=== PATIENT | male | born 1965 | race Caucasian/White ===

== ENCOUNTER 2016-08-26 00:03 | Inpatient (IN) | payer MEDICAID, OTHER ==
[2016-08-26] MEDS ORDERED: NICOTINE 21MG/24HR PATCH TRANSDERM STA (01:40)
[2016-08-26] MEDS ORDERED: LORazepam 1 MG TAB PO STA (01:40)
--- NOTE | 2016-08-26 03:07 | ED ---
Psych HPI - General Chief Complaint: Psychiatric Symptoms Stated Complaint: Mental Health Time Seen by Provider: 08/26/16 00:47 Source: patient, police Mode of arrival: ambulatory Limitations: altered mental status (Patient not forthcoming about recent history ) - History of Present Illness Initial Comments: This is a 50-year-old man brought for psychiatric evaluation, who comes in by the police. The patient is not forthcoming about the events of today area when I asked him why he was here, the patient states that I went out to walk my dog and then the police brought me here. Report received from police, which was given to me through the nursing staff, is that the patient's phoned the police tonight because she was concerned that the patient may attempt to harm himself. The patient's reportedly told him that she wanted to have a divorce, and the patient then reportedly said that he might as well just kill himself. It was reported to me that the patient does have access to guns. The patient does admit to drinking tonight. Again he was not forthcoming about his reason for being in tonight. MD Complaint: suicidal ideation -: hour(s) Context: recent alcohol abuse Associated Symptoms: denies other symptoms - Related Data Home Medications Medication Instructions Recorded Confirmed Aspirin 81 mg PO DAILY 08/26/16 08/26/16 Lisinopril [Zestril] 10 mg PO DAILY 08/26/16 08/26/16 Multivitamins, Thera [Multivitamin 1 tab PO DAILY 08/26/16 08/26/16 (formulary)] Potassium 99 mg PO DAILY 08/26/16 08/26/16 Unknown Otc Allergy Med 1 tab PO DAILY 08/26/16 08/26/16 Previous Rx's Medication Instructions Recorded Nicotine 21Mg/24Hr Patch [Habitrol] 1 patch TRANSDERM DAILY #14 patch 08/28/16 Venlafaxine HCl ER [Effexor XR] 225 mg PO DAILY #90 cap 08/28/16 cloNIDine HCL [Catapres] 0.1 mg PO BID #30 tab 08/28/16 Allergies Allergy/AdvReac Type Severity Reaction Status Date / Time bee venom protein (honey bee) Allergy Anaphylaxis Verified 08/26/16 08:12 Review of Systems ROS Statement: Those systems with pertinent positive or pertinent negative responses have been documented in the HPI. ROS Other: All systems not noted in ROS Statement are negative. Limitations: ROS unobtainable due to patients medical condition Past Medical History Past Medical History: COPD, Hyperlipidemia, Hypertension Additional Past Medical History / Comment(s): kidney stone History of Any Multi-Drug Resistant Organisms: None Reported Past Surgical History: Orthopedic Surgery, Tonsillectomy Additional Past Surgical History / Comment(s): back sx, right hand, right arm, Past Psychological History: Depression Smoking Status: Current every day smoker Past Alcohol Use History: Daily, Heavy Past Drug Use History: None Reported General Exam Limitations: no limitations General appearance: alert, in no apparent distress, appears intoxicated Head exam: Present: atraumatic, normocephalic Eye exam: Present: normal appearance, nystagmus Respiratory exam: Present: normal lung sounds bilaterally. Absent: respiratory distress, wheezes, rales, rhonchi, stridor Cardiovascular Exam: Present: regular rate, normal rhythm, normal heart sounds. Absent: systolic murmur, diastolic murmur, rubs, gallop GI/Abdominal exam: Present: soft. Absent: tenderness Neurological exam: Present: alert, oriented X3 Psychiatric exam: Present: other (Unable to assess) Skin exam: Present: warm, dry, intact, normal color. Absent: rash Course Vital Signs 08/26/16 08/26/16 08/26/16 00:20 07:02 10:50 Temperature 97.7 F Pulse Rate 99 70 95 Pulse Rate [ Left Standing] Pulse Rate [ Right Sitting Pulse Oximetery ] Pulse Rate [ Right] Respiratory 18 16 18 Rate Blood Pressure 139/84 130/85 160/94 Blood Pressure [Left Arm Standing] Blood Pressure [Right Arm Sitting] Blood Pressure [Right Arm] O2 Sat by Pulse 96 96 95 Oximetry 08/26/16 08/27/16 08/27/16 14:15 06:58 14:47 Temperature 98.4 F 97.8 F Pulse Rate Pulse Rate [ Left Standing] Pulse Rate [ 101 H 73 Right Sitting Pulse Oximetery ] Pulse Rate [ 110 H Right] Respiratory 15 16 18 Rate Blood Pressure Blood Pressure [Left Arm Standing] Blood Pressure 150/96 130/87 [Right Arm Sitting] Blood Pressure 109/79 [Right Arm] O2 Sat by Pulse 95 Oximetry 08/27/16 08/28/16 08/28/16 21:57 05:51 12:37 Temperature 98.1 F 97.5 F L Pulse Rate Pulse Rate [ 92 99 Left Standing] Pulse Rate [ Right Sitting Pulse Oximetery ] Pulse Rate [ 95 Right] Respiratory 17 16 Rate Blood Pressure Blood Pressure 137/84 127/84 [Left Arm Standing] Blood Pressure [Right Arm Sitting] Blood Pressure 139/88 [Right Arm] O2 Sat by Pulse Oximetry Medical Decision Making - Medical Decision Making Patient is a 50-year-old man who comes in to have psychiatric evaluation. The patient is not forthcoming about the reason for being here. When asked further questions about the events of tonight he states that he does not like my attitude and does not want to discuss any further. At this point will await for patient to be sober and see about reassessment at that point. - Lab Data Result diagrams: 08/27/16 08:38 08/27/16 08:38 Lab Results 08/26/16 Range/Units 00:35 Urine Opiates Screen Not Detected (NotDetected) Ur Oxycodone Screen Not Detected (NotDetected) Urine Methadone Screen Not Detected (NotDetected) Ur Propoxyphene Screen Not Detected (NotDetected) Ur Barbiturates Screen Not Detected (NotDetected) U Tricyclic Antidepress Not Detected (NotDetected) Ur Phencyclidine Scrn Not Detected (NotDetected) Ur Amphetamines Screen Not Detected (NotDetected) U Methamphetamines Scrn Not Detected (NotDetected) U Benzodiazepines Scrn Not Detected (NotDetected) Urine Cocaine Screen Not Detected (NotDetected) U Marijuana (THC) Screen Not Detected (NotDetected) Disposition Clinical Impression: Alcohol abuse with intoxication Disposition: HOME SELF-CARE
[2016-08-26] MEDS ORDERED: MAG HYDROX/AL HYDROX/SIMETH 30 ML CUP PO PRN (13:51)
[2016-08-26] MEDS ORDERED: ZIPRASIDONE 20 MG VIAL IM PRN (13:51)
[2016-08-26] MEDS ORDERED: MAGNESIUM HYDROXIDE 2,400 MG/10 ML CUP PO PRN (13:51)
[2016-08-26] MEDS ORDERED: ACETAMINOPHEN TAB 325 MG TAB PO PRN (13:51)
[2016-08-26] MEDS ORDERED: LORazepam 2 MG/ML SYRINGE IM PRN (14:12)
[2016-08-26] MEDS ORDERED: VENLAFAXINE HCL ER 150 MG CAP PO SCH (14:15)
[2016-08-26] MEDS ORDERED: cloNIDine HCL 0.1 MG TAB PO PRN (18:43)
[2016-08-26] MEDS: cloNIDine HCL 0.1 MG TAB PO SCH (21:04)
[2016-08-26] MEDS: LORazepam 1 MG TAB PO PRN (21:05)
[2016-08-27] MEDS: LISINOPRIL 10 MG TAB PO SCH (08:49)
[2016-08-27] MEDS: ASPIRIN 81 MG CHEW PO SCH (08:49)
[2016-08-27] MEDS: NICOTINE 21MG/24HR PATCH TRANSDERM SCH (08:52)
[2016-08-27] MEDS: LORazepam 1 MG TAB PO PRN (08:52)
[2016-08-27] MEDS: cloNIDine HCL 0.1 MG TAB PO SCH ×2 (08:52→21:57)
[2016-08-27 09:04] LABS: Basophils # (A) 0.1 k/uL (0-0.2); Basophils % (A) 1 %; CH 32.4; CHCM 32.7; Eosinophils # (A) 0.3 k/uL (0-0.7); Eosinophils % (A) 3 %; HCT 50.4 % (39.0-53.0); HDW 1.89; HGB 16.2 gm/dL (13.0-17.5); Luc # (Auto) 0.22; Luc % (Auto) 2; Lymphocytes # (A) 1.7 k/uL (1.0-4.8); Lymphocytes % (A) 17 %; MCH 31.9 pg (25.0-35.0); MCV 99.4 fL (80.0-100.0); Mean Platelet Volume 6.4; Monocytes # (A) 0.6 k/uL (0-1.0); Monocytes % (A) 6 %; Neutrophils # (A) 7.3 k/uL (1.3-7.7); Neutrophils % (A) 72 %; RBC 5.07 m/uL (4.30-5.90); RDW 12.9 % (11.5-15.5); WBC 10.2 k/uL (3.8-10.6); WBC (Perox) 10.29
[2016-08-27 09:45] LABS: ALT 44 U/L (21-72); AST 49 U/L (17-59); Alkaline Phosphatase 77 U/L (38-126); Anion Gap 7 mmol/L; Blood Urea Nitrogen 14 mg/dL (9-20); Calcium 9.9 mg/dL (8.4-10.2); Carbon Dioxide 30 mmol/L (22-30); Chloride 102 mmol/L (98-107); Glucose 122 mg/dL (74-99); Non-African American GFR(MDRD) >60 (>60 ml/min/1.73 sqM); Potassium 4.3 mmol/L (3.5-5.1); Sodium 139 mmol/L (137-145); Total Bilirubin 1.3 mg/dL (0.2-1.3); Total Protein 7.7 g/dL (6.3-8.2)
--- NOTE | 2016-08-27 09:57 | CONS ---
DATE OF CONSULTATION: DATE OF SERVICE: 08/26/2016 REASON FOR CONSULTATION: Advice regarding EtOH and multiple other medical issues requested by Psychiatry. HISTORY OF PRESENT ILLNESS: This 50-year-old gentleman with a past history of COPD, hypertension, hyperlipidemia, kidney stones, history of EtOH, history of nicotine dependence, being followed Dr. Landa in the outpatient was admitted of psychiatric evaluation. Patient apparently drinking heavily was last night. There is no history of any fever, rigors. No history of headache, loss of consciousness or seizures. No chest pain or palpitation at this time. PAST MEDICAL HISTORY: History of COPD, hypertension, hyperlipidemia, history of renal stones, history of tonsillectomy and depression. History of nicotine dependence and EtOH. Medications are: 1. Zestril 10 mg p.o. daily. 2. Allergy medication. 3. Aspirin 81 mg daily. 4. Effexor XR 150 mg p.o. daily. 5. Potassium 99 mg p.o. daily. 6. Multivitamins 1 p.o. daily. 7. Ativan 0.5 mg t.i.d. Allergies are BEE VENOM. FAMILY HISTORY: No history of heart disease or strokes in the family. SOCIAL HISTORY: Smoking and alcohol as mentioned. REVIEW OF SYSTEMS: ENT: No diminishing hearing or diminished vision. CARDIOVASCULAR: No angina. RESPIRATORY: As mentioned earlier. GI: No nausea. : No dysuria. NERVOUS SYSTEM: No numbness or weakness. ALLERGY/IMMUNOLOGY: No history of asthma, hayfever. MUSCULOSKELETAL: As mentioned earlier. HEMATOLOGY/ONCOLOGY: No history of anemia. ENDOCRINE: No history of diabetes mellitus or hypothyroidism. CONSTITUTIONAL: As mentioned earlier. DERMATOLOGY: Negative. RHEUMATOLOGY: Negative. PSYCHIATRY: As mentioned earlier. PHYSICAL EXAMINATION: The patient is alert and oriented x3. Pulse is 101, blood pressure 150/96, respirations 15, temperature 98.4, pulse ox 94% on room air. HEENT: Conjunctivae normal. Oral mucosa moist. NECK: No jugular venous distention. No carotid bruit. No lymph node enlargement. CARDIOVASCULAR: S1 and S2, muffled. No S3, no S4. RESPIRATORY: Breath sounds diminished at the bases. No rhonchi, no crackles. ABDOMEN: Soft, nontender. No mass palpable. No hepatosplenomegaly. LEGS: No edema, no swelling. NERVOUS SYSTEM: higher function as mentioned. Moves all 4 limbs. No focal deficits. LYMPHATICS: No lymphadenopathy of neck, axillae or groin. SKIN: No ulcers, rashes or bleeding. Labs are at this time, the urine drug screen is negative. Other labs . ASSESSMENT: 1. History of alcoholism and as well as possible alcoholic withdrawal. 2. Hypertension. 3. Chronic obstructive pulmonary disease. 4. Hyperlipidemia. 5. Nephrolithiasis. 6. Degenerative joint disease. 7. History of depression, not otherwise specified. 8. Continuing ongoing nicotine dependence. RECOMMENDATIONS AND DISCUSSION: This 50-year-old gentleman who presented with multiple complex medical issues, we will monitor the patient closely. Continue the current medications. Recommend to initiate the home medications of lisinopril, clonidine may also be initiated on a p.r.n. basis as well. Otherwise, will follow the patient closely with you. Supplement vitamins. Patient may be asked to follow with Dr. Landa. Recommend consultation as well as alcohol rehab. Prognosis guarded. Will follow the patient closely. The patient is currently stable. Thank you for letting us participate in the care of this patient. PHYLICIA
[2016-08-27] MEDS: MULTIVITAMINS, THERA 1 EACH TAB PO SCH (11:19)
--- NOTE | 2016-08-27 17:23 | HP ---
DATE OF ADMISSION: IDENTIFYING DATA: Patient is a 50-year-old male who has been living with his of more than 20 years. Patient presents to the mental health unit through the emergency room with suicidal ideation. HISTORY OF PRESENT ILLNESS: The patient stated that he was drinking "too much on Thursday and felt overwhelmed." Patient stated that he has been working 7 days a week and he has been feeling overwhelmed, as his 's physical health has been deteriorating due to multiple sclerosis. He stated that on Thursday he drank up to 24 beers and was very irritable; his did threaten to leave him, so he left home for a while. When he was gone, his went to the garage and found out that patient had pulled a shotgun from the case. Patient stated that he got very upset and he called his stepdaughter, Karen, and told her that he felt so overwhelmed that he was going to kill himself; and he was even talking about how he wanted to be buried. His stepdaughter called the police, who brought the patient to the emergency room. Today the patient stated that "when I am drinking I do say silly stuff." Patient minimized his statement to his . He did admit that he has anxiety and depression and "feeling so overwhelmed for the last couple of weeks" since he lost his dog, who , but at the same time he said, "I will never kill myself. I am just stressed out." He denied any appetite or sleeping problem. He reports that he does not enjoy anything in life and he is very bothered by his 's physical problem because "she has a mass and multiple lesions in her brain and she is not capable of doing anything." Patient denied any hypomanic or manic features, but he described having high anxiety and excessive worries about financial obligations; and this is characterized by restless feeling, irritability and feeling on edge. PAST PSYCHIATRIC HISTORY: There is one previous psychiatric hospitalization in our unit under Dr. Long in 2011. At that time the patient was intoxicated and he jumped into the tripathi. His diagnosis was major depression, recurrent, and anxiety disorder in addition to alcohol dependence. Currently patient has been getting his psychotropic medication from his primary care physician, Dr. Landa. According to the patient, he has been on Effexor 150 mg for the last 5 years and low dose of Ativan in the morning. When I did ask him if Dr. Landa is aware that he has a drinking problem, regarding the cross addiction between alcohol and benzodiazepine, he said, "Yes, she does not know, and she does not give me too much Ativan; just one in the morning before I go to work." SUBSTANCE ABUSE HISTORY: 1. Alcohol. He has been drinking since age 14. Currently he stated that he has been drinking only beer; however, it is on a daily basis, between 8 and 12 beers, but on Thursday he had 24 beers. He never has been in an inpatient substance abuse program, but he did attend AA meeting. 2. Nicotine. He has been smoking up to 2 packs a day for the last 25 years. 3. There is history of opium use disorder, but it has been in remission for the last 5 years. LEGAL PROBLEMS: Patient had 4 drunk-driving tickets. Last one was in 1991. Currently he denied any legal issue. FAMILY HISTORY OF PSYCHIATRIC ILLNESS: Father had drinking problems. MEDICAL HISTORY: 1. History of hypertension. 2. Status post back surgery 5 years ago. ALLERGIES: BEES. VITAL SIGNS AT THE TIME OF ADMISSION: Temperature 97.7, pulse 99, respiration 18, blood pressure 139/84. LABS: Urine drug screen was negative. SOCIAL HISTORY: Patient's parents were when he was 5 years of age. His mother remarried. Patient has 3 stepsisters. He stated that he is not close to his parents or to his stepsisters. He graduated from high school. Then he started working at age 17 or 18. At that time he did have his son from a brief relationship. He has been for more than 20 years. She is 7 years older than him. He stated that he raised her kids with his son. He has 3 stepdaughters and a son who is 32 years of age. Patient stated that he has been working full-time for the last 3 years at a [employer]. 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 MENTAL STATUS EXAMINATION: Patient presented as a male who looks his stated age. He is dressed in his own clothing. Hygiene is fair. Patient is very vague and not forthcoming. He minimized his drinking. He has good eye contact. Patient kept saying, "I am not happy to be here because I have a lot of bills to pay." Speech is not spontaneous. Thought process is linear, at times circumstantial. There is no evidence of looseness of association or flight of ideas. He endorses feeling overwhelmed, stressed out, depressed, but he denied any current suicidal or homicidal ideation or plan. Affect is constricted. There is no psychomotor agitation. He denied any psychotic feature. There is no hallucination, no delusion. He does not appear hypomanic or manic. His insight and judgment are limited. Cognitive function is intact, as he is alert, oriented to person, place and date, and he is able to recall 3 objects after a delay of several minutes. INTELLECTUAL FUNCTION: Average. STRENGTHS: Patient has his own job. WEAKNESSES: Extensive history of alcohol use. Financial issues. Deterioration of his 's physical health. IMPRESSION: 1. Major depression, recurrent, moderate, without psychotic feature. 2. Alcohol use disorder. 3. Anxiety disorder. 4. Psychosocial dysfunction due to symptoms of depression and alcohol use. PLAN: The patient was admitted to the mental health unit. Will continue the voluntary admission. I did review all his symptoms and medication options with him. As he stated that Effexor was helping, I will increase the Effexor from 150 mg to 225 mg daily. Will continue to monitor him for any alcohol withdrawal and will cover it according to the CIWA. Will request medical consultation. children's service worker to contact his to obtain collateral information from her. Encourage the patient to participate in therapeutic groups and activities groups. Will evaluate him on a daily basis.
[2016-08-28 05:52] VITALS: RESP 16; TEMP 97.5
[2016-08-28] MEDS ORDERED: VENLAFAXINE HCL ER 75 MG CAP PO SCH (09:00)
[2016-08-28] MEDS: LISINOPRIL 10 MG TAB PO SCH (09:51)
[2016-08-28] MEDS: NICOTINE 21MG/24HR PATCH TRANSDERM SCH (09:51)
[2016-08-28] MEDS: cloNIDine HCL 0.1 MG TAB PO SCH (09:51)
[2016-08-28] MEDS: ASPIRIN 81 MG CHEW PO SCH (09:51)
[2016-08-28] MEDS: LORazepam 1 MG TAB PO PRN (09:52)
[2016-08-28] MEDS ORDERED: LORazepam 0.5 MG TAB PO PRN (10:06)
--- NOTE | 2016-08-28 10:35 | P.PN ---
Progress Note - Text INTERVERAL HISTORY: Patient discussed in treatment meeting, reviewed chart, met with patient. Patient was laying in bed but followed me to office ,patient denies any current suicidal or homicidal ideation ,denies any alcohol withdrawals symptoms , patient has limited insight to his drinking , talked in detail about ongoing stressors for last two years :financial problems and relationship problem with his who has been addicted to Ativan and DX with MS "She wants to file for divorce to get more money on her SSD check , she does not do anything in house , just very argumentative ",patient denies any hopeless or helpless feeling, denies any sleeping or appetite problems ,denies any side-effect from higher dose of Effexor. Discussed with patient cross addiction as he has been on Ativan 0.[address] Amin for couple of years and he has been drinking on daily basis,he verbalized understanding PER NURSING STAFF: patient slept 6 hours ,CIWA: 0-1 Reviewed medical consultation :Catapress was added to Lisinopril Mental status exam: The patient is alert he is a disheveled appearance hygiene is fair. He dresses own clothing. He endorses depressed mood but denies any hopeless or helpless feeling ,denies suicidal ideation He is endorsing no current symptoms of psychosis he does not appear hypomanic or manic. He reports no homicidal ideation. His affect is bland. He has some limited spontaneous speech but mainly answers questions asked of him. Insight to his drinking is limited Plan: The patient's will continue on his current medication, we will continue to monitor his vital signs and provide Ativan as needed to prevent alcohol withdrawal. We will continue to monitor him for safety and encourage his participation in the milieu. He requires continued hospitalization. He is encouraged to attend inpatient chemical dependency treatment but he is resistant saying that he has to go to work ,agreed to attend AA, Sw will arrange meeting with for collateral information and to evaluate his support system
[2016-08-28] MEDS: MULTIVITAMINS, THERA 1 EACH TAB PO SCH (12:35)
[2016-08-28 12:38] VITALS: BP 127/84; PULSE 99
--- NOTE | 2016-08-29 15:39 | DS ---
DATE OF ADMISSION: 08/26/2016 DATE OF DISCHARGE: 08/28/2016 Consulting physician: Obdulio. Consulting provider: Dr. Ayala. Consult reason: Medical management. Do you want consulting provider notified: Yes. DISCHARGE DIAGNOSES: 1. Alcohol abuse with alcohol induced mood disorder alcohol use disorder. 2. Alcohol use disorder, severe. 3. Anxiety disorder, unspecified. BRIEF SUMMARY OF THE ADMISSION NOTES: The patient was admitted to the mental health unit from the emergency room on voluntary basis with depression, alcohol intoxication and suicidal ideation. For complete evaluation, please refer to my dictation on August 26. HOSPITAL COURSE: The patient was admitted to the mental health unit on voluntary basis. Once he was admitted to the mental health unit, he was started on alcohol detox. However, his CIWA was running between 0 to 1. He was seen by Dr. Ayala who did continue him on Lisinopril but he added Catapres 0.1 twice a day. Patient was seen on individual basis and also she was attending group therapy. From the first day of admission, he denied any suicidal ideation. He talked in detail about being overwhelmed with a lot of financial issues and his 's medical illness, but according to him, "I would never kill myself". Our executive secretary social welfare was able to contact patient's and also his daughter and daughter stated that she removed the gun from home and his does not mind that would be back home. The patient has been on Effexor, prescribed by his primary care physician for more than a couple of years so I just increased the Effexor to 225 instead of 150 mg. I did discuss with him indicating the cross addiction between alcohol and benzodiazepine especially he told me that he has been getting prescription for Ativan 0.5/3 times a day from his primary care physician. Patient did verbalize understanding. I explored with him the different chemical dependency program treatment. However, he was very resistant saying, "I'm just drinking a couple of beers a day, but on Thursday it was out of control". Vital signs at the time of discharge, blood pressure 139/88, respiration 16, pulse 95, temperature 97.5. Lab work-up: Labs within normal limits. Urine drug screen is negative. Last mental health assessment by nursing staff they stated that the patient also denied any suicidal or homicide ideation. Denied any psychotic feature, denied any hypomanic or manic issues. Has been sleeping and eating throughout his hospitalization and he has been participating in group therapy. MENTAL STATUS EXAMINATION: At the time of the discharge, the patient is alert. He was sitting calmly, in the chair, good eye contact, fair hygiene. Speech is spontaneous, coherent. Thought process is linear. He denied any suicidal ideation or homicide ideation or intent. He does not feel hopeless or helpless. There is no evidence of psychosis or hypomania or génesis. Insight and judgment are improving. There is no verbal or physical aggression. PLAN: 1. Patient will be discharged from the mental health unit today to return back home. 2. Patient was instructed to maintain sobriety from alcohol and attending AA meeting. 3. Patient will continue on Effexor 225 mg daily. 4. Patient to follow up with his primary care physician regarding medical management of his hypertension. For now I will give him prescription of Catapres in addition to his Lisinopril. 5. Patient will be referred to [facility] for dual diagnosis treatment. The patient is able to complete his activities of daily living. There is no eminent safety risk and he is appropriate for transition to outpatient care. Patient condition at the time of the discharge, stable.
== END 2016-08-28 15:34 | disposition home or self-care (01) | DRG 885 ==
LOC: EC 00:03 → 3MHU 13:29
PROVIDERS: ADMIT Psychiatry & Neurology Psychiatry; ATTEND Psychiatry & Neurology Psychiatry
DX: F33.1 Major depressive disorder, recurrent, moderate (principal); R45.851 Suicidal ideations; I10 Essential (primary) hypertension; E78.5 Hyperlipidemia, unspecified; F17.200 Nicotine dependence, unspecified, uncomplicated; F41.9 Anxiety disorder, unspecified; J44.9 Chronic obstructive pulmonary disease, unspecified; M19.90 Unspecified osteoarthritis, unspecified site; N20.0 Calculus of kidney; Z65.3 Problems related to other legal circumstances; Z79.82 Long term (current) use of aspirin; Z79.899 Other long term (current) drug therapy; F59 Unspecified behavioral syndromes associated with physiological disturbances and physical factors; F10.10 Alcohol abuse, uncomplicated
CPT/HCPCS: 80053; 80306; 82075; 84443; 85025; 99285

== ENCOUNTER → 2021-09-26 | Outpatient (CLI) | payer OTHER ==
--- NOTE | 2021-09-26 12:53 | XR ---
EXAMINATION TYPE: XR knee limited LT DATE OF EXAM: 09/26/2021 CLINICAL HISTORY: pain TECHNIQUE: Three views of the left knee are obtained. COMPARISON: None. FINDINGS: There is no acute fracture/dislocation. The tri-compartment joint spaces appear within no rmal limits. The overlying soft tissue appears unremarkable. IMPRESSION: There is no acute fracture or dislocation ICD 10 NO FRACTURE, INITIAL EVALUATION
== END | disposition home or self-care (01) ==
LOC: RADXRYALE 10:56
PROVIDERS: ATTEND Internal Medicine
DX: M25.562 Pain in left knee (principal)

== ENCOUNTER → 2022-02-25 | Outpatient (CLI) | payer OTHER ==
--- NOTE | 2022-02-25 13:29 | XR ---
EXAMINATION TYPE: XR chest 2V DATE OF EXAM: 02/25/2022 1:25 PM COMPARISON: Chest radiographs from 11/15/2015. TECHNIQUE: XR chest 2V Frontal and lateral views of the chest. CLINICAL INDICATION:Male, 56 years old with history of J449 COPD; FINDINGS: Lungs/Pleura: There is flattening of the diaphragm with increased lucency of the lungs. No evidence o f pneumothorax, pleural effusion or focal consolidation. Pulmonary vascularity: Unremarkable. Heart/mediastinum: Cardiomediastinal silhouette is unremarkable. Musculoskeletal: Multiple level degenerative disc disease changes seen throughout the spine. IMPRESSION: 1. No acute cardiopulmonary disease process. 2. COPD changes.
== END | disposition home or self-care (01) ==
LOC: RADXRYALE 13:09
PROVIDERS: ATTEND Internal Medicine
DX: J44.9 Chronic obstructive pulmonary disease, unspecified (principal)
CPT/HCPCS: 71046

== ENCOUNTER 2022-04-09 11:09 | Emergency (ER) | payer OTHER ==
[2022-04-09] MEDS ORDERED: SODIUM CHLORIDE 0.9% 1,000 ML IV STA (11:39)
[2022-04-09 12:30] LABS: Basophils # (A) 0.1 k/uL (0-0.2); Basophils % (A) 1 %; Eosinophils # (A) 0.1 k/uL (0-0.7); Eosinophils % (A) 1 %; HCT 47.3 % (39.0-53.0); HGB 15.9 gm/dL (13.0-17.5); Lymphocytes # (A) 1.1 k/uL (1.0-4.8); Lymphocytes % (A) 13 %; MCH 31.8 pg (25.0-35.0); MCHC 33.6 g/dL (31.0-37.0); MCV 94.7 fL (80.0-100.0); Mean Platelet Volume 6.6; Monocytes # (A) 0.4 k/uL (0-1.0); Monocytes % (A) 4 %; Neutrophils # (A) 6.6 k/uL (1.3-7.7); Neutrophils % (A) 79 %; Platelet Count 316 k/uL (150-450); WBC 8.3 k/uL (3.8-10.6)
[2022-04-09 12:47] LABS: ALT 36 U/L (4-49); AST 49 U/L (17-59); African American GFR (CKD) >90 (>60 ml/min/1.73 sqM); Albumin 4.8 g/dL (3.5-5.0); Alcohol <10 mg/dL; Alkaline Phosphatase 105 U/L (38-126); Anion Gap 6 mmol/L; Blood Urea Nitrogen 8 mg/dL (9-20); Calcium 9.4 mg/dL (8.4-10.2); Carbon Dioxide 29 mmol/L (22-30); Chloride 100 mmol/L (98-107); Glucose 108 mg/dL (74-99); Lipase 199 U/L (23-300); Non-African American GFR(CKD) >90 (>60 ml/min/1.73 sqM); Potassium 4.3 mmol/L (3.5-5.1); Sodium 135 mmol/L (137-145); Total Bilirubin 0.7 mg/dL (0.2-1.3); Total Protein 8.3 g/dL (6.3-8.2)
[2022-04-09 12:49] LABS: INR 0.9 (<1.2); Prothrombin Time 9.7 sec (9.0-12.0)
--- NOTE | 2022-04-09 12:55 | XR ---
EXAMINATION TYPE: XR chest 1V portable DATE OF EXAM: 04/09/2022 12:41 PM COMPARISON: Chest radiographs from 02/25/2022 TECHNIQUE: XR chest 1V portable Portable AP radiograph of the chest. CLINICAL INDICATION:Male, 56 years old with history of weak; FINDINGS: Lungs/Pleura: There is no evidence of pleural effusion, focal consolidation, or pneumothorax. Pulmonary vascularity: Unremarkable. Heart/mediastinum: Cardiomediastinal silhouette is unremarkable. Musculoskeletal: No acute osseous pathology. IMPRESSION: No acute cardiopulmonary disease/process.
[2022-04-09 13:15] LABS: Appearance,Urine Clear (Clear); Bilirubin,Urine Negative (Negative); Blood,Urine Negative (Negative); Color,Urine Light Yellow; Glucose,Urine (UA) Negative (Negative); Ketones,Urine Negative (Negative); Leukocyte Esterase,Urine Negative (Negative); Nitrite,Urine Negative (Negative); PH, Urine 6.5 (5.0-8.0); Protein,Urine Negative (Negative); Specific Gravity,Urine 1.006 (1.001-1.035); Urobilinogen,Urine <2.0 mg/dL (<2.0)
[2022-04-09 13:27] LABS: Amphetamine Screen,Urine Not Detected (NotDetected); Barbiturate Screen,Urine Not Detected (NotDetected); Benzodiazepines Screen,Urine Detected (NotDetected); Cocaine Screen,Urine Not Detected (NotDetected); Methadone Screen, Urine Not Detected (NotDetected); Opiate Screen,Urine Not Detected (NotDetected); Oxycodone Screen, Urine Not Detected (NotDetected); Phencyclidine Screen,Urine Not Detected (NotDetected); Tricyclic Antidepressant,Urine Not Detected (NotDetected); Urn Cannabinoid Scrn Not Detected (NotDetected)
--- NOTE | 2022-04-09 14:07 | ED ---
General Adult HPI - General Chief complaint: Recheck/Abnormal Lab/Rx Stated complaint: fatigue Time Seen by Provider: 04/09/22 11:38 Source: patient Mode of arrival: ambulatory Limitations: no limitations - History of Present Illness Initial comments: Patient complains of progressively worsening fatigue for several months. There is nothing new or different today. He has no chest or belly or back pain. He has no nausea or vomiting. He has no focal weakness. He has no paresthesias. He has had no syncope. - Related Data Home Medications Medication Instructions Recorded Confirmed Aspirin 81 mg PO DAILY 08/26/16 04/09/22 Multivitamins, Thera [Multivitamin 1 tab PO DAILY 08/26/16 04/09/22 (formulary)] lisinopriL [Zestril] 10 mg PO DAILY 08/26/16 04/09/22 ARIPiprazole [Abilify] 5 mg PO DAILY 04/09/22 04/09/22 LORazepam [Ativan] 0.5 mg PO DAILY 04/09/22 04/09/22 Venlafaxine HCl [Effexor XR] 150 mg PO DAILY 04/09/22 04/09/22 Allergies Allergy/AdvReac Type Severity Reaction Status Date / Time bee venom protein (honey bee) Allergy Anaphylaxis Verified 04/09/22 12:00 Review of Systems ROS Statement: Those systems with pertinent positive or pertinent negative responses have been documented in the HPI. ROS Other: All systems not noted in ROS Statement are negative. Past Medical History Past Medical History: COPD, Hyperlipidemia, Hypertension Additional Past Medical History / Comment(s): kidney stone History of Any Multi-Drug Resistant Organisms: None Reported Past Surgical History: Orthopedic Surgery, Tonsillectomy Additional Past Surgical History / Comment(s): back sx, right hand, right arm, Past Psychological History: Depression Smoking Status: Current every day smoker Past Alcohol Use History: Daily, Heavy Past Drug Use History: None Reported General Exam Limitations: no limitations General appearance: alert, in no apparent distress Head exam: Present: atraumatic, normocephalic, normal inspection Eye exam: Present: normal appearance, PERRL, EOMI. Absent: scleral icterus, conjunctival injection, periorbital swelling ENT exam: Present: normal exam, mucous membranes moist Neck exam: Present: normal inspection. Absent: tenderness, meningismus, lymphadenopathy Respiratory exam: Present: normal lung sounds bilaterally. Absent: respiratory distress, wheezes, rales, rhonchi, stridor Cardiovascular Exam: Present: regular rate, normal rhythm, normal heart sounds. Absent: systolic murmur, diastolic murmur, rubs, gallop, clicks GI/Abdominal exam: Present: soft, normal bowel sounds. Absent: distended, tenderness, guarding, rebound, rigid Extremities exam: Present: normal inspection, full ROM, normal capillary refill. Absent: tenderness, pedal edema, joint swelling, calf tenderness Back exam: Present: normal inspection Neurological exam: Present: alert, oriented X3, CN II-XII intact Psychiatric exam: Present: normal affect, normal mood Skin exam: Present: warm, dry, intact, normal color. Absent: rash Course Vital Signs 04/09/22 04/09/22 11:12 12:43 Temperature 98.8 F 98.5 F Pulse Rate 112 H 95 Respiratory 20 14 Rate Blood Pressure 162/95 83/50 O2 Sat by Pulse 98 95 Oximetry EKG Findings - EKG Comments: EKG Findings:: Twelve-lead EKG interpreted by me shows ventricular rate 98 bpm, normal SD interval, normal QRS complex, no ST elevation or depression, interpreted by me as normal sinus rhythm. Medical Decision Making - Medical Decision Making Patient presents with malaise. Patient is placed on bus monitor, interpreted by me as normal sinus rhythm. Patient is administered 1 L IV normal saline bolus for rehydration. Laboratory studies are interpreted by me as normal electrolytes and kidney functioning. CBC is within acceptable limits. 1 view chest x-ray independently reviewed and read by me shows no acute process, no pneumonia. Patient is reevaluated. He tolerates oral intake. He has normal labs. I considered admitting him, however given the completely negative workup I feel he is stable for discharge. - Lab Data Result diagrams: 04/09/22 12:06 04/09/22 12:06 Lab Results 04/09/22 04/09/22 04/09/22 Range/Units 12:06 12:06 12:06 WBC 8.3 (3.8-10.6) k/uL RBC 5.00 (4.30-5.90) m/uL Hgb 15.9 (13.0-17.5) gm/dL Hct 47.3 (39.0-53.0) % MCV 94.7 (80.0-100.0) fL MCH 31.8 (25.0-35.0) pg MCHC 33.6 (31.0-37.0) g/dL RDW 12.0 (11.5-15.5) % Plt Count 316 (150-450) k/uL MPV 6.6 Neutrophils % 79 % Lymphocytes % 13 % Monocytes % 4 % Eosinophils % 1 % Basophils % 1 % Neutrophils # 6.6 (1.3-7.7) k/uL Lymphocytes # 1.1 (1.0-4.8) k/uL Monocytes # 0.4 (0-1.0) k/uL Eosinophils # 0.1 (0-0.7) k/uL Basophils # 0.1 (0-0.2) k/uL PT 9.7 (9.0-12.0) sec INR 0.9 (<1.2) Sodium (137-145) mmol/L Potassium (3.5-5.1) mmol/L Chloride (98-107) mmol/L Carbon Dioxide (22-30) mmol/L Anion Gap mmol/L BUN (9-20) mg/dL Creatinine (0.66-1.25) mg/dL Est GFR (CKD-EPI)AfAm (>60 ml/min/1.73 sqM) Est GFR (CKD-EPI)NonAf (>60 ml/min/1.73 sqM) Glucose (74-99) mg/dL Calcium (8.4-10.2) mg/dL Total Bilirubin (0.2-1.3) mg/dL AST (17-59) U/L ALT (4-49) U/L Alkaline Phosphatase (38-126) U/L Troponin I (0.000-0.034) ng/mL Total Protein (6.3-8.2) g/dL Albumin (3.5-5.0) g/dL Lipase (23-300) U/L Urine Color Urine Appearance (Clear) Urine pH (5.0-8.0) Ur Specific [place] (1.001-1.035) Urine Protein (Negative) Urine Glucose (UA) (Negative) Urine Ketones (Negative) Urine Blood (Negative) Urine Nitrite (Negative) Urine Bilirubin (Negative) Urine Urobilinogen (<2.0) mg/dL Ur Leukocyte Esterase (Negative) Urine Opiates Screen Not Detected (NotDetected) Ur Oxycodone Screen Not Detected (NotDetected) Urine Methadone Screen Not Detected (NotDetected) Ur Propoxyphene Screen Not Detected (NotDetected) Ur Barbiturates Screen Not Detected (NotDetected) U Tricyclic Antidepress Not Detected (NotDetected) Ur Phencyclidine Scrn Not Detected (NotDetected) Ur Amphetamines Screen Not Detected (NotDetected) U Methamphetamines Scrn Not Detected (NotDetected) U Benzodiazepines Scrn Detected H (NotDetected) Urine Cocaine Screen Not Detected (NotDetected) U Marijuana (THC) Screen Not Detected (NotDetected) Serum Alcohol mg/dL 04/09/22 04/09/22 04/09/22 Range/Units 12:06 12:06 12:06 WBC (3.8-10.6) k/uL RBC (4.30-5.90) m/uL Hgb (13.0-17.5) gm/dL Hct (39.0-53.0) % MCV (80.0-100.0) fL MCH (25.0-35.0) pg MCHC (31.0-37.0) g/dL RDW (11.5-15.5) % Plt Count (150-450) k/uL MPV Neutrophils % % Lymphocytes % % Monocytes % % Eosinophils % % Basophils % % Neutrophils # (1.3-7.7) k/uL Lymphocytes # (1.0-4.8) k/uL Monocytes # (0-1.0) k/uL Eosinophils # (0-0.7) k/uL Basophils # (0-0.2) k/uL PT (9.0-12.0) sec INR (<1.2) Sodium 135 L (137-145) mmol/L Potassium 4.3 (3.5-5.1) mmol/L Chloride 100 (98-107) mmol/L Carbon Dioxide 29 (22-30) mmol/L Anion Gap 6 mmol/L BUN 8 L (9-20) mg/dL Creatinine 0.49 L (0.66-1.25) mg/dL Est GFR (CKD-EPI)AfAm >90 (>60 ml/min/1.73 sqM) Est GFR (CKD-EPI)NonAf >90 (>60 ml/min/1.73 sqM) Glucose 108 H (74-99) mg/dL Calcium 9.4 (8.4-10.2) mg/dL Total Bilirubin 0.7 (0.2-1.3) mg/dL AST 49 (17-59) U/L ALT 36 (4-49) U/L Alkaline Phosphatase 105 (38-126) U/L Troponin I <0.012 (0.000-0.034) ng/mL Total Protein 8.3 H (6.3-8.2) g/dL Albumin 4.8 (3.5-5.0) g/dL Lipase 199 (23-300) U/L Urine Color Light Yellow Urine Appearance Clear (Clear) Urine pH 6.5 (5.0-8.0) Ur Specific [place] 1.006 (1.001-1.035) Urine Protein Negative (Negative) Urine Glucose (UA) Negative (Negative) Urine Ketones Negative (Negative) Urine Blood Negative (Negative) Urine Nitrite Negative (Negative) Urine Bilirubin Negative (Negative) Urine Urobilinogen <2.0 (<2.0) mg/dL Ur Leukocyte Esterase Negative (Negative) Urine Opiates Screen (NotDetected) Ur Oxycodone Screen (NotDetected) Urine Methadone Screen (NotDetected) Ur Propoxyphene Screen (NotDetected) Ur Barbiturates Screen (NotDetected) U Tricyclic Antidepress (NotDetected) Ur Phencyclidine Scrn (NotDetected) Ur Amphetamines Screen (NotDetected) U Methamphetamines Scrn (NotDetected) U Benzodiazepines Scrn (NotDetected) Urine Cocaine Screen (NotDetected) U Marijuana (THC) Screen (NotDetected) Serum Alcohol <10 mg/dL Disposition Clinical Impression: Malaise Disposition: HOME SELF-CARE Condition: Good Instructions (If sedation given, give patient instructions): Weakness (ED) Is patient prescribed a controlled substance at d/c from ED?: No Referrals: Luz Landa MD [Primary Care Provider] - 1-2 days
[2022-04-09 14:14] LABS: Appearance,Urine Clear (Clear); Bilirubin,Urine Negative (Negative); Blood,Urine Trace (Negative); Color,Urine Light Yellow; Glucose,Urine (UA) Negative (Negative); Ketones,Urine Negative (Negative); Leukocyte Esterase,Urine Negative (Negative); Nitrite,Urine Negative (Negative); PH, Urine 6.5 (5.0-8.0); Protein,Urine Negative (Negative); RBC,Urine 1 /hpf (0-5); Specific Gravity,Urine 1.007 (1.001-1.035); Squamous Epithelial Cell,Urine <1 /hpf (0-4); Urobilinogen,Urine <2.0 mg/dL (<2.0); WBC,Urine 1 /hpf (0-5)
[2022-04-09 14:45] VITALS: BP 146/80; PULSE 76; RESP 16; TEMP 98.2
== END 2022-04-09 14:50 | disposition home or self-care (01) ==
LOC: EC 11:09
DX: R53.81 Other malaise (principal); I10 Essential (primary) hypertension; J44.9 Chronic obstructive pulmonary disease, unspecified; F32.A Depression, unspecified; E78.5 Hyperlipidemia, unspecified; F17.200 Nicotine dependence, unspecified, uncomplicated; Z79.82 Long term (current) use of aspirin; Z79.899 Other long term (current) drug therapy; Z91.030 Bee allergy status
CPT/HCPCS: 36415; 93005; 80053; 83690; 84484; 85025; 85610; 81003; 81001; 80306; 71045; 99284; 96360; 96361; G0480; 80320

== ENCOUNTER → 2023-01-26 | Outpatient (CLI) | payer OTHER ==
--- NOTE | 2023-01-26 14:48 | XR ---
EXAMINATION TYPE: XR foot complete RT DATE OF EXAM: 01/26/2023 COMPARISON: None HISTORY: Heel pain for several weeks TECHNIQUE: 3 view right foot FINDINGS: Joint spaces are preserved. No acute fracture or dislocation is evident. Calcaneus appears intact. Boehler's angle is preserved. Heel pad is preserved. IMPRESSION: 1. No suspicious abnormality right calcaneus
== END | disposition home or self-care (01) ==
LOC: RADXRYALE 12:06
PROVIDERS: ATTEND Internal Medicine
DX: M79.671 Pain in right foot (principal)

== ENCOUNTER 2024-01-22 09:01 | Emergency (ER) | payer OTHER ==
[2024-01-22 09:08] VITALS: TEMP 98
--- NOTE | 2024-01-22 09:21 | ED ---
General Adult HPI - General Chief complaint: Chest Pain Stated complaint: Chest pain Time Seen by Provider: 01/22/24 09:08 Source: patient, EMS Mode of arrival: EMS Limitations: no limitations - History of Present Illness Initial comments: Dictation was produced using [employer] dictation software. please excuse any grammatical, word or spelling errors. Chief Complaint: 58-year-old male with history of hypertension presents emergency department chest pain History of Present Illness: Patient 58-year-old male he woke up this morning and noticed he had some left-sided chest pain. States it is a dull ache. Nonradiating associate diaphoresis or nausea. Patient has a history of hypertension. Denies any cardiac history. States he does have family history. His grandfather from heart attack in his 50s. The ROS documented in this emergency department record has been reviewed and confirmed by me. Those systems with pertinent positive or negative responses have been documented in the HPI. All other systems are other negative and/or noncontributory. - Related Data Home Medications Medication Instructions Recorded Confirmed ARIPiprazole [Abilify] 5 mg PO DAILY 04/09/22 01/22/24 LORazepam [Ativan] 0.5 mg PO TID PRN 04/09/22 01/22/24 Metoprolol Succinate (ER) [Toprol 50 mg PO DAILY 01/22/24 01/22/24 Xl] Ondansetron Odt [Zofran Odt] 4 mg PO BID PRN 01/22/24 01/22/24 Rosuvastatin Calcium [Crestor] 5 mg PO DAILY 01/22/24 01/22/24 Venlafaxine HCl [Effexor XR] 225 mg PO DAILY 01/22/24 01/22/24 lisinopriL [Zestril] 20 mg PO DAILY 01/22/24 01/22/24 Allergies Allergy/AdvReac Type Severity Reaction Status Date / Time bee venom protein (honey bee) Allergy Anaphylaxis Verified 01/22/24 11:05 Review of Systems ROS Statement: Those systems with pertinent positive or pertinent negative responses have been documented in the HPI. ROS Other: All systems not noted in ROS Statement are negative. Past Medical History Past Medical History: Hypertension Additional Past Medical History / Comment(s): kidney stone History of Any Multi-Drug Resistant Organisms: None Reported Past Surgical History: Orthopedic Surgery, Tonsillectomy Additional Past Surgical History / Comment(s): back sx, right hand, right arm, Past Anesthesia/Blood Transfusion Reactions: No Reported Reaction Past Psychological History: Depression Smoking Status: Current every day smoker Past Alcohol Use History: Daily, Heavy - Past Family History Father Family Medical History: No Reported History General Exam - General Exam Comments Initial Comments: PHYSICAL EXAM: General Impression: Alert and oriented x3, not in acute distress HEENT: Normocephalic atraumatic, extra-ocular movements intact, pupils equal and reactive to light bilaterally, mucous membranes moist. Cardiovascular: Heart regular rate and rhythm Chest: Able to complete full sentences, no retractions, no tachypnea Abdomen: abdomen soft, non-tender, non-distended, no organomegaly Musculoskeletal: Pulses present and equal in all extremities, no peripheral edema Motor: no focal deficits noted Neurological: CN II-XII grossly intact, no focal motor or sensory deficits noted Skin: Intact with no visualized rashes Psych: Normal affect and mood Limitations: no limitations Course Vital Signs 01/22/24 09:04 Temperature 98 F Pulse Rate 93 Respiratory 20 Rate Blood Pressure 125/75 O2 Sat by Pulse 98 Oximetry EKG Findings - EKG Comments: EKG Findings:: My EKG interpretation: Ventricular rate 93, sinus rhythm,. #111, QRS 89, QTc 419. No PA prolongation, no QTC prolongation, no ST or T-wave changes noted. EKG compared to April 09, 2022 showing no changes. Overall, this EKG is unremarkable Medical Decision Making - Medical Decision Making Was pt. sent in by a medical professional or institution (, PA, ASSISTANT OFFICE MANAGER, urgent care, hospital, or skilled nursing...) When possible be specific @ -No Did you speak to anyone other than the patient for history (EMS, parent, family, police, friend...)? What history was obtained from this source @ -No Did you review nursing and triage notes (agree or disagree)? Why? @ -I reviewed and agree with nursing and triage notes Were old charts reviewed (outside hosp., previous admission, EMS record, old EKG, old radiological studies, urgent care reports/EKG's, skilled nursing records)? Report findings @ -No old charts were reviewed Differential Diagnosis (chest pain, altered mental status, abdominal pain women, abdominal pain men, vaginal bleeding, musculoskeletal, weakness, fever, dyspnea, syncope, headache, dizziness, GI bleed, back pain, seizure, CVA, palpatations, mental health)? @ -Differential Chest Pain: Stable Angina, Unstable Angina, STEMI, NSTEMI Aortic Dissection, Pneumothorax, Musculoskeletal, Esophageal Spasm GERD, Cholecystitis, Pancreatitis, Zoster, this is not meant to be an all-inclusive list. EKG interpreted by me (3pts min.). @ -See above X-rays interpreted by me (1pt min.). @ -Chest x-ray is nonacute CT interpreted by me (1pt min.). @ -None done U/S interpreted by me (1pt. min.). @ -None done What testing was considered but not performed or refused? (CT, X-rays, U/S, lab s)? Why? @ -None What meds were considered but not given or refused? Why? @ -None Was smoking cessation discussed for >3mins.? @ -No Were there social determinants of health that impacted care today? How? (Homelessness, low income, unemployed, alcoholism, drug addiction, transportation, low edu. Level, literacy, decrease access to med. care, senior living, rehab)? @ -No Was there de-escalation of care discussed even if they declined (Discuss DNR or withdrawal of care, Hospice)? DNR status @ -No What co-morbidities impacted this encounter? (DM, HTN, Smoking, COPD, CAD, Cancer, CVA, ARF, Chemo, Hep., AIDS, mental health diagnosis, sleep apnea, morbid obesity)? @ -Family history of ACS, hypertension Was patient admitted / discharged? Hospital course, mention meds given and route, prescriptions, significant lab abnormalities, going to OR and other pertinent info. @ -58-year-old male presents emergency department with atypical chest pain typical features. Vital signs stable. EKG shows no signs of ischemia or infarction. Laboratory evaluation obtained. Initial troponins negative. Patient wanted to be be discharged. Was recommended to him to have 3-hour troponin. They are troponin is elevated 0.032. Clinical presentation concerning for acute coronary syndrome. It is recommended that he be admitted. He is told that he is having findings of non-ST segment elevation [place]. Patient refused to stay and would want to be discharged because he has to take care of some things. States that he will come back after those things are completed. He is aware of the risk and benefits of leaving AGAINST MEDICAL ADVICE. Risks, Benefits, and Treatment alternatives were discussed in detail with the patient. The patient is alert and oriented X 3 and has the capacity to make an informed decision. The risks of increased morbidity including the possibly of were explained to and understood by the patient who is choosing to leave against medical advice. The patient is encouraged to return any time should they want further treatment and diagnostic investigation. Did you discuss the management of the patient with other professionals (professionals i.e. , PA, ASSISTANT OFFICE MANAGER, lab, RT, psych nurse, social worker clinical, substance abuse specialist, teacher, tactical deception plans officer, nurse case management)? Give summary @ -No Was critical care preformed (if so, how long)? @ -No Undiagnosed new problem with uncertain prognosis? @ -No Drug Therapy requiring intensive monitoring for toxicity (Heparin, Nitro, Insulin, Cardizem)? @ -No Were any procedures done? @ -No Diagnosis/symptom? Acute, or Chronic, or Acute on Chronic? Uncomplicated (without systemic symptoms) or Complicated (systemic symptoms)? @ -Chest pain Side effects of treatment? @ -No Exacerbation, Progression, or Severe Exacerbation? @ -No Poses a threat to life or bodily function? How? (Chest pain, [place], [place], pneumonia, PE, COPD, DKA, ARF, appy, cholecystitis, CVA, Diverticulitis, Homicidal, Suicidal, threat to staff... and all critical care pts) @ -yes - Lab Data Result diagrams: 01/22/24 09:20 01/22/24 09:20 Lab Results 01/22/24 01/22/24 01/22/24 Range/Units 09:20 09:20 09:20 WBC 9.9 (3.8-10.6) k/uL RBC 3.64 L (4.30-5.90) m/uL Hgb 12.4 L (13.0-17.5) gm/dL Hct 37.6 L (39.0-53.0) % MCV 103.4 H (80.0-100.0) fL MCH 34.1 (25.0-35.0) pg MCHC 33.0 (31.0-37.0) g/dL RDW 13.1 (11.5-15.5) % Plt Count 222 (150-450) k/uL MPV 7.2 Neutrophils % 77 % Lymphocytes % 14 % Monocytes % 5 % Eosinophils % 3 % Basophils % 0 % Neutrophils # 7.6 (1.3-7.7) k/uL Lymphocytes # 1.4 (1.0-4.8) k/uL Monocytes # 0.5 (0-1.0) k/uL Eosinophils # 0.2 (0-0.7) k/uL Basophils # 0.0 (0-0.2) k/uL Macrocytosis Slight PT 9.9 L (10.0-12.5) sec INR 0.9 (<1.2) APTT 22.8 (22.0-30.0) sec Sodium 135 L (137-145) mmol/L Potassium 3.5 (3.5-5.1) mmol/L Chloride 109 H (98-107) mmol/L Carbon Dioxide 26 (22-30) mmol/L Anion Gap 0 mmol/L BUN 9 (9-20) mg/dL Creatinine 0.84 (0.66-1.25) mg/dL Est GFR (CKD-EPI)AfAm >90 (>60 ml/min/1.73 sqM) Est GFR (CKD-EPI)NonAf >90 (>60 ml/min/1.73 sqM) Glucose 100 H (74-99) mg/dL Calcium 8.8 (8.4-10.2) mg/dL Magnesium 2.0 (1.6-2.3) mg/dL Total Bilirubin 0.8 (0.2-1.3) mg/dL AST 102 H (17-59) U/L ALT 53 H (4-49) U/L Alkaline Phosphatase 133 H (38-126) U/L Troponin I (0.000-0.034) ng/mL Total Protein 6.0 L (6.3-8.2) g/dL Albumin 3.3 L (3.5-5.0) g/dL 01/22/24 01/22/24 Range/Units 09:20 12:28 WBC (3.8-10.6) k/uL RBC (4.30-5.90) m/uL Hgb (13.0-17.5) gm/dL Hct (39.0-53.0) % MCV (80.0-100.0) fL MCH (25.0-35.0) pg MCHC (31.0-37.0) g/dL RDW (11.5-15.5) % Plt Count (150-450) k/uL MPV Neutrophils % % Lymphocytes % % Monocytes % % Eosinophils % % Basophils % % Neutrophils # (1.3-7.7) k/uL Lymphocytes # (1.0-4.8) k/uL Monocytes # (0-1.0) k/uL Eosinophils # (0-0.7) k/uL Basophils # (0-0.2) k/uL Macrocytosis PT (10.0-12.5) sec INR (<1.2) APTT (22.0-30.0) sec Sodium (137-145) mmol/L Potassium (3.5-5.1) mmol/L Chloride (98-107) mmol/L Carbon Dioxide (22-30) mmol/L Anion Gap mmol/L BUN (9-20) mg/dL Creatinine (0.66-1.25) mg/dL Est GFR (CKD-EPI)AfAm (>60 ml/min/1.73 sqM) Est GFR (CKD-EPI)NonAf (>60 ml/min/1.73 sqM) Glucose (74-99) mg/dL Calcium (8.4-10.2) mg/dL Magnesium (1.6-2.3) mg/dL Total Bilirubin (0.2-1.3) mg/dL AST (17-59) U/L ALT (4-49) U/L Alkaline Phosphatase (38-126) U/L Troponin I <0.012 0.032 (0.000-0.034) ng/mL Total Protein (6.3-8.2) g/dL Albumin (3.5-5.0) g/dL Disposition Clinical Impression: Chest pain Disposition: LEFT AGAINST MEDICAL ADVICE Condition: Serious Instructions (If sedation given, give patient instructions): Chest Pain (ED) Referrals: Shaheen Ashby MD [Primary Care Provider] - 1-2 days Time of Disposition: 13:52
[2024-01-22 09:39] LABS: Basophils % (A) 0 %; Eosinophils # (A) 0.2 k/uL (0-0.7); Eosinophils % (A) 3 %; HCT 37.6 % (39.0-53.0); HGB 12.4 gm/dL (13.0-17.5); Lymphocytes # (A) 1.4 k/uL (1.0-4.8); Lymphocytes % (A) 14 %; MCH 34.1 pg (25.0-35.0); MCV 103.4 fL (80.0-100.0); Macrocytosis Slight; Mean Platelet Volume 7.2; Monocytes # (A) 0.5 k/uL (0-1.0); Monocytes % (A) 5 %; Neutrophils # (A) 7.6 k/uL (1.3-7.7); Neutrophils % (A) 77 %; Platelet Count 222 k/uL (150-450); RBC 3.64 m/uL (4.30-5.90); RDW 13.1 % (11.5-15.5); WBC 9.9 k/uL (3.8-10.6)
[2024-01-22 09:50] LABS: INR 0.9 (<1.2); Partial Thromboplastin Time 22.8 sec (22.0-30.0); Prothrombin Time 9.9 sec (10.0-12.5)
[2024-01-22 10:03] LABS: ALT 53 U/L (4-49); AST 102 U/L (17-59); African American GFR (CKD) >90 (>60 ml/min/1.73 sqM); Albumin 3.3 g/dL (3.5-5.0); Alkaline Phosphatase 133 U/L (38-126); Anion Gap 0 mmol/L; Blood Urea Nitrogen 9 mg/dL (9-20); Calcium 8.8 mg/dL (8.4-10.2); Carbon Dioxide 26 mmol/L (22-30); Chloride 109 mmol/L (98-107); Glucose 100 mg/dL (74-99); Non-African American GFR(CKD) >90 (>60 ml/min/1.73 sqM); Potassium 3.5 mmol/L (3.5-5.1); Sodium 135 mmol/L (137-145); Total Bilirubin 0.8 mg/dL (0.2-1.3)
--- NOTE | 2024-01-22 10:17 | XR ---
EXAMINATION TYPE: XR chest 2V DATE OF EXAM: 01/22/2024 9:27 AM COMPARISON: 04/09/2022 CLINICAL INDICATION: Male, 58 years old with history of Chest Pain, , TECHNIQUE: PA and lateral views FINDINGS: Heart normal size. Aorta and pulmonary vasculature within normal limits. Mild hyperinflation. No cons olidation or pleural effusion. IMPRESSION: Correlate for possible underlying COPD. Otherwise, no acute cardiopulmonary process. [facility], , 01/22/2024 10:15 AM
[2024-01-22] MEDS ORDERED: ASPIRIN 81 MG PO STA (13:44)
[2024-01-22 14:19] VITALS: BP 103/68; PULSE 65; RESP 16
== END 2024-01-22 14:19 | disposition left against medical advice (07) ==
LOC: EC 09:01
DX: R07.89 Other chest pain (principal); I10 Essential (primary) hypertension; F17.200 Nicotine dependence, unspecified, uncomplicated; Z79.899 Other long term (current) drug therapy; Z91.030 Bee allergy status; Z53.29 Procedure and treatment not carried out because of patient's decision for other reasons
CPT/HCPCS: 36415; 71046; 80053; 83735; 84484; 85025; 85610; 85730; 93005; 99285